=== PATIENT | male | born 1985 | race African-American/Black ===

== ENCOUNTER 2023-04-18 12:55 | Emergency (ER) | payer OTHER ==
[~2023-04-18] VITALS: Ht 180.3 cm; Wt 81.8 kg
[2023-04-18 14:20] VITALS: TEMP 97.5
[2023-04-18 14:26] LABS: BASOPHILS % (AUTO) 0.3 % (0.0-2.0); EOSINOPHILS % (AUTO) 1.1 % (1.0-6.0); HEMATOCRIT 50.6 % (41-53); HEMOGLOBIN 16.6 g/dL (13.5-17.5); LYMPHOCYTES # (AUTO) 0.6 K/uL (1.0-4.8); LYMPHOCYTES % (AUTO) 7.1 % (22.0-44.0); MEAN CORPUSCULAR HEMOGLOBIN 30.7 pg (26.0-34.0); MEAN CORPUSCULAR HGB CONC 32.8 G/dL (31.0-37.0); MEAN CORPUSCULAR VOLUME 94 fL (80-100); MONOCYTES # (AUTO) 0.8 K/uL (0.1-1.0); MONOCYTES % (AUTO) 8.6 % (2.0-9.0); NEUTROPHILS # (AUTO) 7.3 K/uL (1.8-7.7); NEUTROPHILS % (AUTO) 82.9 % (40.0-70.0); PLATELET COUNT (AUTO) 289 K/uL (150-450); RED CELL DISTRIBUTION WIDTH 12.8 % (11.5-14.5); WHITE BLOOD COUNT (AUTO) 8.8 K/uL (4.5-11.0)
[2023-04-18] MEDS ORDERED: PredniSONE 20 MG TABLET PO ONE (14:30)
[2023-04-18 14:40] LABS: ANION GAP 11 mmol/L (8-16); CALCIUM, TOTAL 10.2 mg/dL (8.8-10.5); CARBON DIOXIDE 29 mmol/L (22-29); CHLORIDE 99 mmol/L (98-107); CREATININE 1.33 mg/dL (0.60-1.30); GLOMERULAR FILTR. RATE CALC > 60 mL/min (>60); GLUCOSE,RANDOM 92 mg/dL (70-110); POTASSIUM 4.3 mmol/L (3.5-5.1); SODIUM SERUM 139 mmol/L (136-145); UREA NITROGEN, BLOOD 16 mg/dL (7-18)
[2023-04-18 14:46] LABS: TROPONIN I-HIGH SENSITIVITY 6 ng/L (<76)
[2023-04-18 15:04] LABS: ALANINE AMINOTRANSFERASE 94 U/L (12-78); ALBUMIN 4.3 g/dL (3.4-5.0); ALKALINE PHOSPHATASE 148 U/L (46-116); ASPARTATE AMINOTRANSFERASE 46 U/L (15-37); BILIRUBIN,TOTAL 0.9 mg/dL (0.1-1.0); CREATINE KINASE, TOTAL ONLY 302 U/L (39-308); TOTAL PROTEIN, SERUM 8.5 g/dL (6.4-8.2)
[2023-04-18 15:09] LABS: B-TYPE NATRIURETIC PEPTIDE 8 pg/mL (0-100)
[2023-04-18] MEDS ORDERED: AZIT250T9 PO (16:38)
[2023-04-18] MEDS ORDERED: ALBU18HF12 IH (16:38)
[2023-04-18] MEDS ORDERED: PRED-554 PO (16:38)
[2023-04-18 16:45] VITALS: BP 148/99
[2023-04-18] MEDS ORDERED: 0.9% SODIUM CHLORIDE 15 ML NEB SOLUTION NEB ONE (16:45)
[2023-04-18] MEDS ORDERED: ALBUTEROL SULFATE 2.5 MG/0.5 ML 5 ML NEB SOLUTION NEB ONE (16:45)
[2023-04-18] MEDS ORDERED: IPRATROPIUM BROMIDE 0.5 MG/2.5 ML NEB SOLUTION NEB ONE (16:45)
[2023-04-18 16:49] VITALS: PULSE 99; RESP 22; O2SAT 93
[2023-04-18 16:53] VITALS: PULSE 99; RESP 22; O2SAT 93
[2023-04-18 19:45] LABS: COVID AG,FIA SOURCE NASAL SWAB
[2023-04-18 20:10] LABS: INFLUENZA TYPE A NEGATIVE FOR TYPE A (NEGATIVE); INFLUENZA TYPE B NEGATIVE FOR TYPE B (NEGATIVE)
[2023-04-18 20:11] LABS: SARS-COV2 (COVID) ANTIGEN,FIA Negative (Negative)
== END 2023-04-18 19:01 | disposition home or self-care (01) ==
LOC: EMS 12:55
DX: J10.1 Influenza due to other identified influenza virus with other respiratory manifestations (principal); F12.90 Cannabis use, unspecified, uncomplicated; Z20.822 Contact with and (suspected) exposure to COVID-19
CPT/HCPCS: 99291; 71045; 87426; 80053; 82550; 83880; 84484; 85025; 87804; 36415; 94644; 93005; J7512; Q9967